=== PATIENT | male | born 1985 | race Caucasian/White ===

== ENCOUNTER 2016-10-19 12:45 | Emergency (ER) | payer MEDICAID ==
[~2016-10-19] VITALS: Ht 172.7 cm; Wt 79.5 kg
[~2016-10-19 12:45] MED LIST: NORCO PO; TYLENOL 500MG500 MG PO
[2016-10-19 13:12] VITALS: BP 133/85; PULSE 65; TEMP 99.2
== END 2016-10-19 13:56 | disposition home or self-care (01) ==
LOC: COL.ER 12:45
DX: K12.1 Other forms of stomatitis (principal)

== ENCOUNTER 2019-03-17 15:38 | Emergency (ER) | payer MEDICARE ==
[~2019-03-17] VITALS: Ht 172.7 cm; Wt 65.5 kg
[2019-03-17 16:44] LABS: BASO # 0.1 (0.0-0.2); BASO % 0.5 % (0.0-2.0); EOS # 0.6 (0.0-0.7); EOS % 3.8 % (0-4.0); GRAN # 11.9 (1.4-6.5); GRAN % 81.3 % (42.2-75.2); HEMOGLOBIN 13.4 g/dl (13.5-18.0); MEAN CELL VOLUME 88 fl (80.0-100.0); MEAN CORPUSCULAR HEMOGLOBIN 30 pg (27.0-31.0); MEAN CORPUSCULAR HGB CONC 34 g/dl (33.0-37.0); MEAN PLATELET VOLUME 9.5 fl (7.4-10.4); MONO % 7.1 % (1.7-9.3); PLATELET COUNT 367 K/mm3 (130-400); RED BLOOD COUNT 4.53 M/mm3 (4.20-5.60); REDCELL DISTRIBUTION WIDTH-CV 12.1 % (11.5-14.5)
[2019-03-17 17:02] LABS: BILIRUBIN,TOTAL 0.3 mg/dL (0.0-1.0); C-REACTIVE PROTEIN 3.6 mg/dL (0.0-0.9); CALCIUM 9.1 mg/dL (8.4-10.2); CREATININE, serum 1.07 (0.66-1.25); POTASSIUM 3.8 mmol/L (3.4-5.0); TOTAL PROTEIN 7.3 gm/dL (6.4-8.2)
[2019-03-17 17:50] VITALS: TEMP 100.3
[2019-03-17 19:26] LABS: GLUCOSE,CSF 52 mg/dL (40-70); TOTAL PROTEIN,CSF 39 mg/dL (15-45)
[2019-03-17 20:05] LABS: CSF APPEARANCE CLEAR; CSF COLOR COLORLESS; CSF RBC 0 /mm3 (0-0)
[2019-03-17 20:10] LABS: CSF MONONUCLEAR 94 % (70-100); CSF POLYMORPHONUCLEAR 6 % (0-6)
[2019-03-17 20:40] LABS: CSF APPEARANCE CLEAR; CSF COLOR COLORLESS; CSF RBC 0 /mm3 (0-0)
[2019-03-17 20:42] LABS: CSF MONONUCLEAR 63 % (70-100)
[2019-03-17 20:43] LABS: CSF POLYMORPHONUCLEAR 37 % (0-6)
[2019-03-17 21:00] VITALS: BP 134/44; PULSE 93
== END 2019-03-17 21:00 | disposition short-term general hospital (02) ==
LOC: COL.ER 15:38
PROVIDERS: Emergency Medicine
DX: R50.9 Fever, unspecified (principal); Z87.891 Personal history of nicotine dependence
CPT/HCPCS: J0692; J1170; J2405; J3010; J3370; J7030; J7050; Q9967

== ENCOUNTER 2020-07-16 10:30 | Outpatient (RCR) | payer MEDICARE | END 2020-08-05 | disposition still patient (30) | LOC: MKS.ESL.PT | DX: M25.511 Pain in right shoulder (principal) ==